=== PATIENT | male | born 1965 | race African-American/Black ===

== ENCOUNTER 2018-06-24 16:42 | Emergency (ER) | payer MEDICAID, OTHER ==
[~2018-06-24] VITALS: Ht 180.3 cm; Wt 86.2 kg
[2018-06-24 16:53] VITALS: BP 141/85
[2018-06-24] MEDS ORDERED: Tylenol #3 tab (300mg/30mg) ORAL ONE (17:15)
--- NOTE | 2018-06-24 17:15 | Emergency Room Report ---
History of Present Illness General Chief Complaint: Pain Source: Patient Present Illness HPI 53 year old male presents to the ED c/o pain, swelling, and erythema to the left side of his mouth about a posterior left lower molar. pt. reports needing a root canal and not having a dentist appt. Pt. also c/o exacerbation of his chronic pain in the left lower hip and being out of his medication. pt. reports he is in the process of switching physicians and the last one he saw gave him tramadol which did not help pt. reports pain relief by T3 that he was being prescribed regularly for exacerbations. Pt. denies trauma or fall. denies fevers or chills. denies swollen tender lymph nodes. Allergies: Coded Allergies: HYDROCODONE (Verified Allergy, Unknown, 06/24/18) Patient History Past Medical History: see triage record Past Surgical History: none Pertinent Family History: none Immunizations: UTD Reviewed Nursing Documentation: PMH: Agreed; PSxH: Agreed Nursing Documentation-PMH Past Medical History: No History, Except For Hx Hypertension: No Hx Pacemaker: No Hx Asthma: Yes Hx COPD: No Hx Diabetes: No Hx Cancer: No Hx Gastrointestinal Problems: No Hx Dialysis: No History Of Psychiatric Problem: Yes - PTSD Hx Neurological Problems: No Hx Cerebrovascular Accident: No Hx Seizures: No Review of Systems All Other Systems: negative except mentioned in HPI Physical Exam Vital Signs Date Time Temp Pulse Resp B/P (MAP) Pulse Ox O2 Delivery O2 Flow Rate FiO2 06/24/18 16:53 99.0 95 16 141/85 95 Room Air 99.0 Sp02 EP Interpretation: reviewed, normal General Appearance: no apparent distress, alert, GCS 15, non-toxic Head: normocephalic, atraumatic Eyes: bilateral eye normal inspection, bilateral eye PERRL ENT: hearing grossly normal, normal voice, uvula midline, moist mucus membranes , other - tenderness to percussion tooth no. 17, some erythema about the gum line no obvious fluctuance mild swelling noted. Neck: full range of motion Respiratory: lungs clear, normal breath sounds, speaking full sentences Cardiovascular #1: regular rate, rhythm Musculoskeletal: back normal, gait/station normal, normal range of motion, tender - TTP left hip - lateral and anterior aspects- ambulatory with FROM Neurologic: alert, oriented x3, responsive, motor strength/tone normal, sensory intact, speech normal, grossly normal Psychiatric: judgement/insight normal Skin: normal color, no rash, warm/dry, well hydrated Lymphatic: no adenopathy Medical Decision Making PA Attestation Dr. wharton is my supervising Physician whom patient management has been discussed with. Diagnostic Impression: Primary Impression: Acute pericoronitis Additional Impression: Chronic pain Qualified Codes: G89.29 - Other chronic pain ER Course 53 year old male presents to the ED c/o pain, swelling, and erythema to the left side of his mouth about a posterior left lower molar. pt. reports needing a root canal and not having a dentist appt. Pt. also c/o exacerbation of his chronic pain in the left lower hip and being out of his medication. pt. reports he is in the process of switching physicians and the last one he saw gave him tramadol which did not help pt. reports pain relief by T3 that he was being prescribed regularly for exacerbations. Pt. denies trauma or fall. denies fevers or chills. denies swollen tender lymph nodes. Ddx considered but are not limited to cellulitis, dental abscess, orbital cellulitis, d/l tooth, dental pain. trigeminal neuralgia, fracture, D/L, sprain/ strain, arthritis just to name a few. -Tooth no. 17 tender to percussion. Vital signs: are WNL, pt. is afebrile H&PE are most consistent with dental abscess.- and exacerbation of chronic pain. ORDERS: none required at this time, the diagnosis is clinical ED INTERVENTIONS: -T3 PO DISCHARGE: At this time pt. is stable for d/c to home. Will provide printed patient care instructions, and any necessary prescriptions. Care plan and follow up instructions have been discussed with the patient prior to discharge. Last Vital Signs Date Time Temp Pulse Resp B/P (MAP) Pulse Ox O2 Delivery O2 Flow Rate FiO2 06/24/18 16:53 99.0 95 16 141/85 95 Room Air 99.0 Disposition: HOME, SELF-CARE Condition: Stable Scripts Naproxen* (NAPROXEN*) 500 Mg Tablet 500 MG ORAL TWICE A DAY, #20 TAB Prov: Nicolette Miller 06/24/18 Acetaminophen With Codeine (T#3) (TYLENOL #3 TAB*) Y Tab 1 TAB ORAL Q8HR PRN for For Pain, #6 TAB Prov: Nicolette Miller 06/24/18 Amoxicillin* (AMOXIL*) 500 Mg Capsule 500 MG ORAL BID for 7 Days, #14 CAP Prov: Nicolette Miller 06/24/18 Patient Instructions: Chronic Pain, Pericoronitis Additional Instructions: Take medications as directed. Follow up with a Dentist in 3-5 days, even if your symptoms have resolved. * * --Please review list of Dental clinics, if you do not already have a Dentist Return sooner to ED if new symptoms occur, or current symptoms become worse. Do not drink alcohol, drive, or operate heavy machinery while taking Tylenol # 3 as this may cause drowsiness. - Please note that this Emergency Department Report was dictated using [employer] tube assembler technology software, occasionally this can lead to erroneous entry secondary to interpretation by the dictation equipment. Nicolette Miller Jun 24, 2018 17:15
[2018-06-24] MEDS ORDERED: ACETAMINOPHEN-1 EAC1 ORAL (17:26)
[2018-06-24] MEDS ORDERED: AMOXICILLIN500 MG ORAL (17:26)
[2018-06-24] MEDS ORDERED: NAPROXEN500 M2 ORAL (17:26)
[2018-06-24 17:44] VITALS: BP 141/85
== END 2018-06-24 18:00 | disposition home or self-care (01) ==
LOC: EMR 17:33
DX: K05.20 Aggressive periodontitis, unspecified (principal); G89.29 Other chronic pain; M25.552 Pain in left hip; F43.10 Post-traumatic stress disorder, unspecified
CPT/HCPCS: 99283

== ENCOUNTER 2019-11-08 08:08 | Emergency (ER) | payer OTHER ==
[~2019-11-08] VITALS: Ht 182.9 cm; Wt 83.9 kg
[~2019-11-08 08:08] MED LIST: ACETAMINOPHEN-1 EAC1 ORAL; AMOXICILLIN500 MG ORAL; NAPROXEN500 M2 ORAL
[2019-11-08 08:24] VITALS: BP 139/98
--- NOTE | 2019-11-08 08:26 | NUR ---
ED Nurse Note:pt. came with left sided facial swelling for 3 days that started with toothache
[2019-11-08] MEDS ORDERED: IBUPROFEN600 MG ORAL (08:27)
[2019-11-08] MEDS ORDERED: AUGMENTIN 875-1 EAC1 ORAL (08:27)
[2019-11-08 08:30] VITALS: BP 139/98
--- NOTE | 2019-11-08 08:30 | NUR ---
ER DISCHARGE NOTE: Patient is cleared to be discharged per ERMD, pt is aox4, on room air, with stable vital signs. pt was given dc and prescription instructions, pt was able to verbalize understanding, pt is able to ambulate with steady gait. pt took all belongings.
--- NOTE | 2019-11-08 08:33 | Emergency Room Report ---
History of Present Illness General Chief Complaint: Pain Source: Patient Present Illness HPI 54-year-old male history of depression active smoker presenting for dental pain and left facial swelling. Symptoms present for the past few days. Patient denies any fevers, no nausea vomiting or shortness of breath. Pain is currently 7 out of 10 worse with palpation. Has not seen his primary care doctor for this issue. Allergies: Coded Allergies: HYDROCODONE (Verified Allergy, Unknown, 06/24/18) Patient History Past Medical History: see triage record Reviewed Nursing Documentation: PMH: Agreed; PSxH: Agreed Nursing Documentation-PMH Past Medical History: No Stated History Hx Hypertension: No Hx Pacemaker: No Hx Asthma: Yes Hx COPD: No Hx Diabetes: No Hx Cancer: No Hx Gastrointestinal Problems: No Hx Dialysis: No Hx Neurological Problems: No Hx Cerebrovascular Accident: No Hx Seizures: No Review of Systems All Other Systems: negative except mentioned in HPI Physical Exam Vital Signs Date Time Temp Pulse Resp B/P (MAP) Pulse Ox O2 Delivery O2 Flow Rate FiO2 11/08/19 08:11 98.1 99 16 139/98 (112) 98 Room Air Sp02 EP Interpretation: reviewed, normal General Appearance: well appearing, no apparent distress Head: normocephalic, atraumatic Eyes: bilateral eye PERRL, bilateral eye EOMI ENT: hearing grossly normal, moist mucus membranes, other - Dental caries noted. Tenderness along left upper molars, mild left facial swelling with tenderness noted Neck: full range of motion, supple Respiratory: lungs clear, normal breath sounds, no rhonchi, no respiratory distress, no retraction, no wheezing Cardiovascular #1: normal peripheral pulses, regular rate, rhythm, no murmur Gastrointestinal: non tender, soft, non-distended, no guarding Neurologic: alert, motor strength/tone normal, benefits administrator III-XII nml as tested, oriented x3, no focal defects Skin: normal color, warm/dry Medical Decision Making Diagnostic Impression: Primary Impression: Dental infection Additional Impression: Facial cellulitis ER Course Patient presented with dental pain and mild left-sided facial cellulitis. Low suspicion for facial abscess. He was nontoxic and in no acute distress. Will give antibiotic and Motrin. Have patient follow-up with primary doctor and dentistry. I recommended smoking cessation. I did not notice any facial droop on my exam. Just left facial swelling. Low suspicion for stroke or Aguilar's palsy at this time.. Last Vital Signs Date Time Temp Pulse Resp B/P (MAP) Pulse Ox O2 Delivery O2 Flow Rate FiO2 11/08/19 08:24 98.1 16 139/98 98 Room Air 11/08/19 08:11 99 Disposition: HOME, SELF-CARE Condition: Stable Scripts Ibuprofen* (MOTRIN*) 600 Mg Tablet 600 MG ORAL Q8H PRN for For Pain, #30 TAB 0 Refills Prov: Will Mondragon M.D. 11/08/19 Amoxicillin/Potassium Clav 875-125* (AUGMENTIN 875-125 TABLET*) 1 Each Tablet 1 TAB ORAL TWICE A DAY, #14 TAB Prov: Will Mondragon M.D. 11/08/19 Referrals: [facility] Aneta Felder. [facility] Patient Instructions: Dental Abscess, [id number] Additional Instructions: Patient is instructed to follow-up with her primary care doctor, primary care clinic or [facility] in 1 to 2 days. Patient instructed to return for any worsening symptoms or concerns. Please note that the documentation in this note was used with [employer] technology. Pleae be advised that this may lead to erroneous text due to misinterpretation by the dictation software Will Mondragon M.D. Nov 08, 2019 08:33
== END 2019-11-08 08:30 | disposition home or self-care (01) ==
LOC: EMR 08:30
DX: K02.9 Dental caries, unspecified (principal); L03.211 Cellulitis of face; J45.909 Unspecified asthma, uncomplicated; Z88.5 Allergy status to narcotic agent
CPT/HCPCS: 99282

== ENCOUNTER 2020-06-15 13:04 | Emergency (ER) | payer OTHER ==
[~2020-06-15] VITALS: Ht 180.3 cm; Wt 86.2 kg
[~2020-06-15 13:04] MED LIST changes: +AUGMENTIN 875-1 EAC1 ORAL; +IBUPROFEN600 MG ORAL
[2020-06-15] MEDS ORDERED: Ketorolac 30mg Inj IM ONE (13:45)
--- NOTE | 2020-06-15 13:52 | Emergency Room Report ---
History of Present Illness General Chief Complaint: Toothache Source: Patient Present Illness HPI 55-year-old male presents to the emergency department complaining of 3 out of 10 severity right-sided facial pain, swelling and tenderness along the gumline on the right upper jaw area progressive x3 days. Patient reports history of poor dentition in the past. Patient states that initially he just felt swelling however today he began having pain. He denies fevers or chills. He denies recent dental procedures. Patient denies bleeding or discharge. Patient reports pain is exacerbated upon chewing or palpation. No other aggravating or relieving factors. Pt. is a daily smoker. He denies sore throat, drooling, difficulty with swallowing or changes in his voice. Allergies: Coded Allergies: HYDROCODONE (Verified Allergy, Unknown, 06/24/18) COVID-19 Screening Contact w/high risk pt: No Experienced COVID-19 symptoms?: No COVID-19 Testing performed INTELLECTUAL PROPERTY LEGAL ASSISTANT: No Patient History Past Medical History: see triage record Past Surgical History: none Pertinent Family History: none Social History: Reports: smoking Immunizations: UTD Reviewed Nursing Documentation: PMH: Agreed; PSxH: Agreed Nursing Documentation-PMH Hx Hypertension: No Hx Pacemaker: No Hx Asthma: Yes Hx COPD: No Hx Diabetes: No Hx Cancer: No Hx Gastrointestinal Problems: No Hx Dialysis: No Hx Neurological Problems: No Hx Cerebrovascular Accident: No Hx Seizures: No Review of Systems All Other Systems: negative except mentioned in HPI Physical Exam Vital Signs Date Time Temp Pulse Resp B/P (MAP) Pulse Ox O2 Delivery O2 Flow Rate FiO2 06/15/20 13:19 98.4 92 17 130/84 (99) 95 Room Air Sp02 EP Interpretation: reviewed, normal General Appearance: no apparent distress, alert, GCS 15, non-toxic Head: normocephalic, atraumatic Eyes: bilateral eye normal inspection, bilateral eye PERRL ENT: hearing grossly normal, normal pharynx, normal voice, uvula midline, moist mucus membranes, other - erythema and swelling diffusely along the gum line of teeth 3-5, no palpable fluctuance, there is ST swelling to the cheek area as well. Neck: full range of motion, no meningismus, no bony tend Respiratory: lungs clear, normal breath sounds, no wheezing, speaking full sentences Cardiovascular #1: regular rate, rhythm Musculoskeletal: normal range of motion, gait/station normal, non-tender Neurologic: alert, motor strength/tone normal, oriented x3, sensory intact, re sponsive, speech normal Psychiatric: judgement/insight normal Skin: no rash, normal color Lymphatic: no adenopathy Medical Decision Making PA Attestation Dr. Hale Is my supervising Physician whom patient management has been discussed with. Diagnostic Impression: Primary Impression: Facial cellulitis Additional Impression: Toothache ER Course 55-year-old male presents to the emergency department complaining of 3 out of 10 severity right-sided facial pain, swelling and tenderness along the gumline on the right upper jaw area progressive x3 days. Patient reports history of poor dentition in the past. Patient states that initially he just felt swelling however today he began having pain. He denies fevers or chills. He denies recent dental procedures. Patient denies bleeding or discharge. Patient reports pain is exacerbated upon chewing or palpation. No other aggravating or relieving factors. Pt. is a daily smoker. He denies sore throat, drooling, difficulty with swallowing or changes in his voice. Ddx considered but are not limited to cellulitis, dental abscess, orbital cellulitis, d/l tooth, dental pain. trigeminal neuralgia Vital signs: are WNL, pt. is afebrile H&PE are most consistent with facial and gum cellulitis, no evidence to suggest abscess at this time. Poor dentition and gingivitis throughout the mouth noted. ORDERS: none required at this time, the diagnosis is clinical ED INTERVENTIONS: -Toradol IM D/w pt. Dental follow up. D/w pt. conservative tx at home with oral abx. Pt. given ED return precautions for worsening or new symptoms or with development of abscess like symptoms which we reviewed. DISCHARGE: At this time pt. is stable for d/c to home. Will provide printed patient care instructions, and any necessary prescriptions. Care plan and follow up instructions have been discussed with the patient prior to discharge. Last Vital Signs Date Time Temp Pulse Resp B/P (MAP) Pulse Ox O2 Delivery O2 Flow Rate FiO2 06/15/20 13:19 98.4 92 17 130/84 (99) 95 Room Air Status: improved Disposition: HOME, SELF-CARE Condition: Stable [facility]errals: [facility]ERR[facility]P) [facility] Patient Instructions: Dental Pain Additional Instructions: Take medications as directed. Follow up with a Dentist in 3-5 days, even if your symptoms have resolved. --Please review list of Dental clinics, if you do not already have a Dentist Return sooner to ED if new symptoms occur, or current symptoms become worse. Do not drink alcohol, drive, or operate heavy machinery while taking Tylenol # 3 as this may cause drowsiness. - Please note that this Emergency Department Report was dictated using [employer] shake packer technology software, occasionally this can lead to erroneous entry secondary to interpretation by the dictation equipment. Nicolette Miller Jun 15, 2020 13:52
[2020-06-15] MEDS ORDERED: ANBESOL9 GM MM (13:53)
[2020-06-15] MEDS ORDERED: IBUPROFEN600 M1 ORAL (13:53)
[2020-06-15] MEDS ORDERED: AUGMENTIN 875-1 EAC1 ORAL (13:53)
[2020-06-15 13:57] VITALS: BP 130/84
--- NOTE | 2020-06-15 13:58 | NUR ---
ED Nurse Note:pt. came with c/o upper gum pain, meds were given
[2020-06-15 14:10] VITALS: BP 130/84
--- NOTE | 2020-06-15 14:10 | NUR ---
ED Nurse Note: Pt cleared by health care Provider for discharge. DC instructions/prescription was given and explained to pt and verbalized understanding of teachings. All medical deviecs such as ID band removed. Pt is AAO x4, ambulatory and left with all personal belongings.
== END 2020-06-15 14:15 | disposition home or self-care (01) ==
LOC: EMR 13:32
DX: L03.211 Cellulitis of face (principal); K08.89 Other specified disorders of teeth and supporting structures; X58.XXXA Exposure to other specified factors, initial encounter; Y92.9 Unspecified place or not applicable; Z88.6 Allergy status to analgesic agent; F17.200 Nicotine dependence, unspecified, uncomplicated
CPT/HCPCS: 96372; J1885; Z7502; 99283